=== PATIENT | female | born 1985 | race Caucasian/White ===

== ENCOUNTER 2017-03-18 12:54 | Emergency (ER) | payer OTHER ==
[~2017-03-18] VITALS: Ht 157.5 cm; Wt 81.6 kg
[~2017-03-18 12:54] MED LIST: COL100 PO; NORCO1 TA2 PO; PRILOSEC20 MG PO
[2017-03-18 14:51] VITALS: BP 102/65
== END 2017-03-18 14:51 | disposition home or self-care (01) ==
LOC: ED 12:54
DX: Z02.89 Encounter for other administrative examinations (principal); O26.893 Other specified pregnancy related conditions, third trimester; Z3A.00 Weeks of gestation of pregnancy not specified